=== PATIENT | female | born 1985 | race Caucasian/White ===

== ENCOUNTER 2017-04-02 14:10 | Observation (INO) | payer OTHER ==
[2017-04-02 14:27] VITALS: BP 124/74; PULSE 92
== END 2017-04-02 15:23 | disposition home or self-care (01) ==
LOC: OB 14:10
PROVIDERS: ADMIT Family Medicine; ATTEND Family Medicine
DX: Z34.80 Encounter for supervision of other normal pregnancy, unspecified trimester (principal)
CPT/HCPCS: 59025; G0378

== ENCOUNTER 2017-04-06 13:27 | Observation (INO) | payer OTHER ==
--- NOTE | 2017-04-06 14:20 | XRAY ---
Indication: Evaluate AIXA. Limited OB ultrasound performed to evaluate AIXA. Four-quadrant AIXA is 10.5 cm, normal range. This was previously 12.3 cm on December 08, 2016 exam.
[2017-04-06 14:22] VITALS: BP 114/65; PULSE 90
== END 2017-04-06 14:45 | disposition home or self-care (01) ==
LOC: OB 13:27
PROVIDERS: ADMIT Family Medicine; ATTEND Family Medicine
DX: Z34.83 Encounter for supervision of other normal pregnancy, third trimester (principal)
CPT/HCPCS: 59025; 76815; G0378

== ENCOUNTER 2017-04-07 02:05 | Inpatient (IN) | payer OTHER ==
[2017-04-07] MEDS ORDERED: Lactated Ringers 5,000 ML IV ONE (02:20)
[2017-04-07] MEDS ORDERED: Zofran 4 MG/2 ML VIAL IV PRN (02:25)
[2017-04-07] MEDS ORDERED: OMNIPEN 2 GM / NACL 100ML 100 ML IV ONE (02:25)
[2017-04-07] MEDS ORDERED: XYLOCAINE 1% HCL 20 ML MDV IJ PRN (02:25)
[2017-04-07] MEDS ORDERED: KEFZOL 1 GM ONE (02:28)
[2017-04-07] MEDS ORDERED: PITOCIN 30 UNITS/ LR 500 ML 500 ML IV SCH (02:30)
[2017-04-07] MEDS: Lactated Ringers 1,000 ML IV SCH ×2 (02:31→04:06)
[2017-04-07] MEDS ORDERED: BICITRA 30 ML CUP PO STA (02:35)
[2017-04-07] MEDS ORDERED: BICITRA 30 ML CUP ONE (02:38)
[2017-04-07 02:51] LABS: BASOPHIL % 0.1 % (0.0-0.4); Eosinophil % 0.4 % (0.00-5.0); Granulocytes % 70.7 % (36.0-66.0); Lymphocytes % 20.1 % (24.0-44.0); Mean Cell Volume 85.5 fl (78-100); Monocytes % 8.7 % (0.0-12.0); Platelet Count 158 K/mm3 (150-450); Red Blood Count 3.58 M/mm3 (4.1-5.4); Red Cell Distribution Width 14.4 % (11.5-14.0); White Blood Count 10.6 K/mm3 (4.0-10.5)
[2017-04-07 02:53] LABS: Mean Corpuscular Hemoglobin 27.6 pg (26-32)
[2017-04-07 03:03] LABS: INR 0.99 (0.8-3.0)
[2017-04-07] MEDS ORDERED: LANSINOH 40 GM TOP PRN (03:40)
[2017-04-07] MEDS ORDERED: NORCO 5/325 MG PO PRN (03:40)
[2017-04-07] MEDS ORDERED: Mylicon 80MG PO PRN (03:40)
[2017-04-07] MEDS ORDERED: Ambien 10 MG PO PRN (03:40)
[2017-04-07] MEDS: MOTRIN 400 MG PO PRN ×4 (03:51→22:32)
[2017-04-07] MEDS: TUCKS TP PRN ×2 (04:05→21:44)
[2017-04-07] MEDS: Dermoplast Spray TP PRN ×2 (04:05→21:43)
[2017-04-07 04:16] LABS: ADD URINE CULTURE? NO (NO); Bacteria RARE /HPF (NEGATIVE); Bilirubin NEGATIVE (NEGATIVE); Blood 250 Ery/ul (0-5); COMPLETE URINE MICROSCOPIC? YES; Collection Type CATH; Epithelial Cells RARE /HPF (FEW); Glucose NEGATIVE (NEGATIVE); Leukocyte Esterase NEGATIVE (NEGATIVE)
[2017-04-07] MEDS: TYLENOL EXTRA STRENGTH 500 MG PO PRN ×4 (04:33→20:32)
[2017-04-07 06:07] LABS: BASOPHIL % 0.2 % (0.0-0.4); Eosinophil % 0.1 % (0.00-5.0); Granulocytes % 85.8 % (36.0-66.0); Lymphocytes % 8.4 % (24.0-44.0); Mean Cell Volume 85.3 fl (78-100); Mean Platelet Volume 12.1 fl (6-9.5); Monocytes % 5.5 % (0.0-12.0); Platelet Count 189 K/mm3 (150-450); Red Blood Count 3.53 M/mm3 (4.1-5.4); Red Cell Distribution Width 14.2 % (11.5-14.0); White Blood Count 16.5 K/mm3 (4.0-10.5)
[2017-04-07] MEDS ORDERED: OMNIPEN 1GM / NaCl 100ML 100 ML IV SCH (06:28)
[2017-04-07 06:29] LABS: Mean Corpuscular Hemoglobin 27.4 pg (26-32)
[2017-04-07] MEDS: Colace 100 MG PO SCH ×2 (08:54→22:30)
[2017-04-07] MEDS ORDERED: Adacel Vial IM ONE (10:00)
[2017-04-07] MEDS ORDERED: FERREX 150 PO SCH (10:00)
[2017-04-07] MEDS ORDERED: Lactated Ringers 1,000 ML IV ONE (10:43)
[2017-04-08] MEDS: TYLENOL EXTRA STRENGTH 500 MG PO PRN (02:58)
[2017-04-08 05:41] LABS: Mean Cell Volume 86.3 fl (78-100); Mean Platelet Volume 11.8 fl (6-9.5); Platelet Count 178 K/mm3 (150-450); Red Blood Count 3.29 M/mm3 (4.1-5.4); Red Cell Distribution Width 14.3 % (11.5-14.0); White Blood Count 12.9 K/mm3 (4.0-10.5)
[2017-04-08 05:44] LABS: Mean Corpuscular Hemoglobin 27.6 pg (26-32)
[2017-04-08 07:14] LABS: BAND 3 % (0.0-2.0); Platelet Estimate NORMAL (NORMAL); Polychromasia RARE; Total Cells Counted 100
[2017-04-08 07:15] LABS: ANISOCYTOSIS 1+
[2017-04-08 11:07] VITALS: BP 120/76; PULSE 93
== END 2017-04-08 10:30 | disposition home or self-care (01) | DRG 775 ==
LOC: OB 02:05
PROVIDERS: ADMIT Family Medicine; ATTEND Family Medicine
PROC: 10E0XZZ Delivery of Products of Conception, External Approach (ICD-10-PCS; principal; 2017-04-07)
DX: O80 Encounter for full-term uncomplicated delivery (principal); Z3A.37 37 weeks gestation of pregnancy; Z37.0 Single live birth
CPT/HCPCS: 36415; 59025; 76815; 80307; 81000; 85025; 85610; 85730; 86850; 86900; 86901; 86922; 88307; 90471; 90715; G0378; J0290; J0690; J2590; A9270-GY

== ENCOUNTER 2021-03-05 06:02 | Day surgery (SDC) | payer OTHER ==
--- NOTE | 2021-03-02 09:14 | HP ---
DATE OF SURGERY: 03/05/2021 HISTORY OF PRESENT ILLNESS: The patient is a 35-year-old female who presented with history of colon cancer in the family. Uncle at age 50 from colon cancer. Mom and dad do not have any colon cancer at this time. She denies GI signs or symptoms at this time. There is no prior colonoscopy at this time. States there is history of loose stool after her gallbladder came out but no other issues. PAST MEDICAL HISTORY: None. PAST SURGICAL HISTORY: Laparoscopic cholecystectomy. Tonsillectomy. Cardiac ablation for V-tach. ALLERGIES: NKDA. MEDICATIONS: None. FAMILY HISTORY: Lung cancer. Colon cancer. SOCIAL HISTORY: None. REVIEW OF SYSTEMS: CONSTITUTIONAL: Denies fever or chills. CHEST: Denies shortness of breath. CVS: Denies chest pain. ABDOMEN: Denies abdominal pain, nausea, vomiting, diarrhea, constipation or rectal bleeding. PHYSICAL EXAMINATION: GENERAL: No acute distress. CHEST: Nonlabored. No shortness of breath. CVS: Regular rate and rhythm. ABDOMEN: Soft, nontender. IMPRESSION: Screening colonoscopy and positive family history of colon cancer. PLAN: Colonoscopy with Dr. Hiram Brown. As dictated by Anjana Mora NP.
[2021-03-05] MEDS ORDERED: Lactated Ringers 1,000 ML IV SCH (06:30)
[2021-03-05] MEDS ORDERED: Lactated Ringers 1,000 ML IV ONE (06:50)
[2021-03-05] MEDS ORDERED: DIPRIVAN 200 MG/20 ML IV ONE ×2 (09:18→09:21)
[2021-03-05 10:12] VITALS: O2SAT 100
[2021-03-05 10:16] VITALS: BP 142/94; PULSE 70
--- NOTE | 2021-03-05 11:13 | OP ---
SURGERY DATE/TIME: 03/05/2021 0915 PREOPERATIVE DIAGNOSIS: Strong family history. Father from colon cancer at age 50. POSTOPERATIVE DIAGNOSIS: Normal. PROCEDURE: Colonoscopy complete. SURGEON: Hiram Brown M.D. ANESTHESIA: MAC. COMPLICATIONS: None. CONDITION: Stable. INDICATION: The patient's father at 50 from colon cancer. This is her first endoscopy. DESCRIPTION OF PROCEDURE: Taken to endoscopy. Left lateral decubitus position. Anal digital examination satisfactory. Satisfactory tone. Excellent prep. The scope advanced to the cecum. Base of the cecum, ileocecal valve, appendiceal orifice is normal. Ascending, hepatic, transverse, splenic, descending, sigmoid, rectum, anus is normal. Normal exam today. Instructions were given. If no symptoms will follow up in five years because of the strong family history.
== END 2021-03-05 10:25 | disposition home or self-care (01) ==
LOC: SDC 06:02
PROVIDERS: ATTEND Surgery
DX: Z12.11 Encounter for screening for malignant neoplasm of colon (principal); Z80.0 Family history of malignant neoplasm of digestive organs
CPT/HCPCS: 84703; J2704

== ENCOUNTER 2021-06-22 17:26 | Emergency (ER) | payer OTHER ==
[2021-06-22 18:19] VITALS: O2SAT 99
[2021-06-22] MEDS ORDERED: XYLOCAINE 1% HCL 20 ML MDV ONE (18:35)
--- NOTE | 2021-06-22 19:10 | ERPHSYRPT ---
- History of Present Illness Time Seen by Provider: 06/22/21 18:24 Source: patient Exam Limitations: no limitations Patient Subjective Stated Complaint: " I cut my finger while cutting carrots this afternoon ." Triage Nursing Assessment: Pt presents to ER with compliants of left third digit laceration that occurred today at approx 1415. Pt is alert and oriented x3. Pt laceration is approx 2.5cm in length and cut in U shape on tip of finger. Bl eeding controlled. Pt skin is pink, warm, and dry. Respirations are easy and unlabored at this time. Pt denies any pain or further complaints. Physician History: 35 years old right-handed dominant female presented in ER with chief complaint of left distal pulp laceration while cutting carrots with a kitchen knife at home. Was bleeding initially but stopped with applying pressure. Complaining of dull aching sharp pain mild to moderate. No distal numbness. Up-to-date with tetanus. Occurred: just prior to arrival Method of Injury: incised Quality: sharpness Severity of Pain-Max: moderate Severity of Pain-Current: mild Extremities Pain Location: 3rd finger: left Modifying Factors: Worsens With: movement Associated Symptoms: none Allergies/Adverse Reactions: No Known Drug Allergies Allergy (Verified 06/22/21 18:19) Home Medications: Aspirin/Acetaminophen/Caffeine [Excedrin Extra Strength Caplet] 1 each PO Q12H PRN PRN 03/05/21 [History] Famotidine [Pepcid] 20 mg PO HS PRN PRN 03/05/21 [History] Hx Tetanus, Diphtheria Vaccination/Date Given: No Hx Influenza Vaccination/Date Given: No Hx Pneumococcal Vaccination/Date Given: No Immunizations Up to Date: Yes Travel Risk - International Travel Have you traveled outside of the country in past 3 weeks: No - Coronavirus Screening Are you exhibiting any of the following symptoms?: No Close contact with a COVID-19 positive Pt in past 14-21 Days: No - Vaccine Status Have you recieved a Covid-19 vaccination: Yes [employer]: [employer] - Vaccination Dates Date of 2cond Vaccination (if applicable): FEB 2021 - Review of Systems Constitutional: No Symptoms Eyes: No Symptoms Ears, Nose, & Throat: No Symptoms Respiratory: No Symptoms Cardiac: No Symptoms Abdominal/Gastrointestinal: No Symptoms Genitourinary Symptoms: No Symptoms Musculoskeletal: Injury Skin: Skin Lesions Neurological: No Symptoms Psychological: No Symptoms Endocrine: No Symptoms Hematologic/Lymphatic: No Symptoms - Past Medical History Pertinent Past Medical History: No Neurological History: No Pertinent History ENT History: No Pertinent History Cardiac History: No Pertinent History Respiratory History: Pneumonia Endocrine Medical History: No Pertinent History Musculoskeletal History: No Pertinent History GI Medical History: Other History: No Pertinent History Psycho-Social History: No Pertinent History Female Reproductive Disorders: No Pertinent History - Past Surgical History Past Surgical History: Yes Neuro Surgical History: No Pertinent History Cardiac: Other Respiratory: No Pertinent History Gastrointestinal: Cholecystectomy Genitourinary: No Pertinent History Musculoskeletal: No Pertinent History Female Surgical History: No Pertinent History Other Surgical History: tonsils, cardiac ablation, vein surgery - Social History Smoking Status: Never smoker Exposure to second hand smoke: No Drug Use: none Patient Lives Alone: No - Female History Hx Now: No - Nursing Vital Signs Nursing Vital Signs: Initial Vital Signs Temperature 97.5 F 06/22/21 18:14 Pulse Rate 69 06/22/21 18:14 Respiratory Rate 18 06/22/21 18:14 Blood Pressure 139/94 06/22/21 18:14 O2 Sat by Pulse Oximetry 99 06/22/21 18:14 Pain Scale Pain Intensity 0 - Physical Exam General Appearance: no apparent distress, alert Eyes, Ears, Nose, Throat Exam: normal ENT inspection Neck Exam: normal inspection, full range of motion Cardiovascular/Respiratory Exam: normal breath sounds, regular rate/rhythm Shoulder Exam: normal inspection, normal ROM Elbow/Forearm Exam: normal inspection, non-tender, no evidence of injury, normal ROM Wrist Exam: normal inspection, normal ROM Hand Exam: soft tissue tenderness (2.5 cm left third digit pulp flap laceration with no active bleeding or spurting. Intact nail.) Neuro/Tendon Exam: normal sensation, normal motor functions Mental Status Exam: alert, oriented x 3, cooperative Skin Exam: normal color SpO2 Interpretation: normal SpO2: 99 O2 Delivery: Room Air Procedures - Laceration/Wound Repair Hand Time of Procedure: 19:07 Wound Location: Right Wound Length (cm): 2 Wound's Depth, Shape: flap Wound Explored: clean Irrigated: Yes Hibiclens Prep: Yes Anesthesia: 1% Lidocaine Volume Anesthetic (ccs): 4 Wound Repaired With: sutures Suture Size/Type: 4-0, prolene Number of Sutures: 5 Layer Closure?: No Sterile Dressing Applied?: Yes Splint Applied?: No Ordered Tests: Medication Summary Discontinued Medications Generic Name Dose Route Start Last Admin Trade Name Tati PRN Reason Stop Dose Admin Lidocaine HCl Confirm 06/22/21 18:35 Lidocaine Hcl 1% 20 Ml Mdv 20 Ml Ml Administered 06/22/21 18:36 Dose 4 ml .ROUTE .[employer] - Progress Progress: improved Progress Note: 06/22/21 19:08 laceration is repaired. Patient is up-to-date with tetanus. Outpatient follow- up. Counseled pt/family regarding: diagnosis, need for follow-up - Departure Departure Disposition: Home Clinical Impression: Finger laceration Condition: Stable Critical Care Time: No Referrals: DUONG CHAVIS [Primary Care Provider] - Follow up/PCP as directed (In 2 days for reevaluation) Instructions: Laceration Repair With Stitches (DC) Additional Instructions: Keep it clean. Take Tylenol/ibuprofen as needed. Follow-up with primary care for reevaluation. Watch for signs of infection with increasing redness discharge/pain, bluish discoloration of the tip etc. Return to ER for any worsening.
[2021-06-22 19:16] VITALS: BP 132/92; PULSE 70
== END 2021-06-22 19:20 | disposition home or self-care (01) ==
LOC: ED 17:26
DX: S61.213A Laceration without foreign body of left middle finger without damage to nail, initial encounter (principal); W26.0XXA Contact with knife, initial encounter; Y93.G1 Activity, food preparation and clean up; Y92.000 Kitchen of unspecified non-institutional (private) residence as the place of occurrence of the external cause
CPT/HCPCS: 12001; 99283